=== PATIENT | female | born 1980 | race African-American/Black ===

== ENCOUNTER 2018-07-21 22:47 | Emergency (ER) | payer SELFPAY ==
[2018-07-21] MEDS ORDERED: KETOROLAC TROMETHAMINE 30 MG/1ML VIAL IVP ONE (23:03)
--- NOTE | 2018-07-21 23:22 | ED Physician Documentation ---
Abdominal Pain - HPI Stated Complaint: low abd pain Chief Complaint: Abdominal Pain Additonal Information: Patient presents to ED with sudden onset of suprapubic abdominal pain. Patient states she was sitting at home watching TV when she felt like she had to go to the bathroom. While pushing to have a bowel movement she had sudden onset of lower abdominal pain, sharp stabbing 10/10. Patient states her stool was loose but did not have blood. She came to the ED. She states it feels like her ectopic only lower. She denies fever, chills, night sweats, nausea/vomiting. Onset: hours Duration: constant Timing: still present Context: denies: out of country travel, bad food, recent trauma Severity: severe Quality: pain, sharp, stabbing Associated Symptoms: diarrhea. denies: fever, chills, nausea, vomiting, bloody stools - ROS CONST: no problems GI/: denies: black stools CVS/RESP: denies: shortness of breath EYES/ENT: denies: problems with vision MS/SKIN/LYMPH: denies: rash NEURO/PSYCH: denies: headache, light-headedness - SOCIAL HX Smoking History: cigarettes, greater than 1 pack/day Alcohol Use: none Drug Use: none - FAMILY HX Family History: none - PAST HX Past History: none Ischemic Bowel Risk Factors: none Other History: ectopic Home Medications: Ambulatory Orders Medication Instructions Recorded Hydrocodone/Acetaminophen [[place] 1 each PO TID #15 tablet 07/22/18 5-325 Tablet] Allergies/Adverse Reactions: Allergies Allergy/AdvReac Type Severity Reaction Status Date / Time No Known Allergies Allergy Verified 07/21/18 23:05 - VITAL SIGNS Vital Signs: Vital Signs Temp Pulse Resp BP Pulse Ox 98.2 F 89 18 115/63 99 07/21/18 22:47 07/22/18 01:41 07/22/18 01:41 07/22/18 01:41 07/22/18 01:41 - REVIEWED ASSESSMENTS Nursing Assessment Reviewed: Yes Vitals Reviewed: Yes Progress - Progress Progress: 6 Patient refusing to given urine sample. Refusing in/out cath. 2358 Serum HCG negative. Going to CT scan ED Results Lab/Radiology - Lab Results Lab Results: Lab Results 07/21/18 07/21/18 07/21/18 23:20 23:20 23:20 WBC 10.30 K/ul K/ul (4.00-12.00) RBC 4.40 M/ul M/ul (3.90-5.20) Hgb 12.7 g/dL g/dL (12.0-16.0) Hct 38.0 % % (34.5-46.5) MCV 86.0 fl fl (80.0-100.0) MCH 28.7 pg pg (28.0-34.0) MCHC 33.3 g/dL g/dL (30.0-36.0) RDW 12.6 % % (11.3-14.3) Plt Count 284 K/mm3 K/mm3 (130-400) Neut % (Auto) 64.0 % % (39.0-79.0) Lymph % (Auto) 26.7 % % (16.0-50.0) [place] % (Auto) 5.2 % % (0.0-11.0) Eos % (Auto) 3.7 % % (0.0-6.8) Baso % (Auto) 0.4 (0.0-1.5) Neut # (Auto) 6.6 # k/uL # k/uL (1.4-7.7) Lymph # (Auto) 2.8 # k/uL # k/uL (0.6-4.0) [place] # (Auto) 0.5 # k/uL # k/uL (0.0-0.9) Eos # (Auto) 0.4 # k/uL # k/uL (0.0-0.6) Baso # (Auto) 0.0 # k/uL # k/uL (0.0-0.5) Sodium 137 mmol/L mmol/L (136-145) Potassium 3.5 mmol/L mmol/L (3.5-5.1) Chloride 107 mmol/L mmol/L (98-107) Carbon Dioxide 24 mmol/L mmol/L (22-30) BUN 12 mg/dL mg/dL (7-17) Creatinine 0.80 mg/dL mg/dL (0.52-1.04) Estimated Creat Clear 143 Est GFR ( Amer) > 60 (60 - ) Est GFR (Non-Af Amer) > 60 (60 - ) Glucose 99 mg/dL mg/dL (74-106) Calcium 8.4 mg/dL mg/dL (8.4-10.2) Total Bilirubin 0.2 mg/dL mg/dL (0.2-1.3) AST 43 U/L U/L (15-46) ALT 37 U/L U/L (13-69) Alkaline Phosphatase 65 U/L U/L (38-126) Total Protein 6.4 g/dL g/dL (6.3-8.2) Albumin 4.2 g/dL g/dL (3.5-5.0) Serum HCG, Qual Negative (NEGATIVE) WBC 10.3, Hgb 12.7, Hct 38.0 Plat 284 Na 137, K3.5, Cl 107, CO2 24, Glucose 99, BUN 12, Cr 0.8, ALT 37, AST 43, bili yeung 0.2 - Radiology Radiology Impressions: CT of the abdomen and pelvis with contrast Clinical history: Suprapubic pain. Contrast administered: 95 mL of Omnipaque. Technique: CT abdomen and pelvis is performed with intravenous infusion of contrast. Sagittal and coronal reconstructions were performed by the technologist. Findings: Visualized lung bases are clear. The liver and spleen demonstrate normal attenuation without focal defect. The gallbladder is contracted, but otherwise unremarkable. There is no pancreatic or adrenal abnormality. The kidneys demonstrate symmetric enhancement. There is no retroperitoneal mass or significant adenopathy. The appendix is visualized and is within normal limits. Gas and stool are present throughout the colon. There is a complex cystic structure right ovary with a fat fluid level consistent with mature cystic teratoma. There is a probable 5 cm serosal fibroid arising from the uterus. There is no significant free fluid in the pelvis or abdomen. Bladder is unremarkable. Impression: 1. 7 cm mixed density right adnexal mass consistent with mature cystic teratoma. 2. Probable serosal fibroid. 3. Negative appendix. 4. Contracted gallbladder. Electronically signed on Jul 22, 2018 12:46:11 AM RFID STRATEGIST by: Mik John - Orders Orders: ED Orders Category Date Time Status Place IV Lock 1T Care 07/21/18 22:[address] ABD & PELVIS W/ CON Stat Exams 07/21/18 Completed BETA HCG [SERUM HCG] Stat Lab 07/21/18 23:20 Completed CBC/PLATELET/DIFF Routine Lab 07/21/18 23:20 Completed CMP Routine Lab 07/21/18 23:20 Completed HYDROcodone /APAP 5/325 [[place] 5/325] Med 07/22/18 00:59 Discontinued 1 each PO NOW ONE Ketorolac Tromethamine [Toradol] Med 07/21/18 23:03 Discontinued 30 mg IVP NOW ONE fentaNYL CITRATE/PF [Duragesic] Med 07/21/18 23:42 Discontinued 25 mcg IVP NOW ONE fentaNYL CITRATE/PF [Duragesic] Med 07/22/18 00:41 Discontinued 25 mcg IVP NOW ONE Abdominal Pain Physical Exam - Physical Exam General Appearance: no acute distress, mild distress EENT: FATOU NECK: normal inspection, supple RESPIRATORY: no resp distress, chest non-tender, breath sounds normal CVS: reg rate & rhythm, heart sounds normal, no murmur ABDOMEN: soft, tenderness (suprapubic tenderness) BACK: No: no CVA tenderness SKIN: warm/dry, normal color EXTREMITIES: non-tender, no edema NEURO: oriented X3, motor nml Vital Signs: Vital Signs Temp Pulse Resp BP Pulse Ox 98.2 F 89 18 115/63 99 07/21/18 22:47 07/22/18 01:41 07/22/18 01:41 07/22/18 01:41 07/22/18 01:41 Discharge Clincal Impression: Cystic teratoma of right ovary Uterine fibroid Qualifiers: Uterine leiomyoma location: unspecified location Qualified Code(s): D25.9 - Leiomyoma of uterus, unspecified Prescriptions: Hydrocodone/Acetaminophen [[place] 5-325 Tablet] 1 each PO TID #15 tablet Referrals: Primary Doctor,No [Primary Care Provider] - 2 Days Additional Instructions: 1. Do to lack of urinalysis urinary tract infection cannot be ruled out 2. Do to lack of Ultrasound and Quantitative HCG ectopic cannot be ruled out. 3. Follow up with council member as soon as possible 4. If symptoms persist go to [place], [place] for evaluation with Ultrasound to rule out possible ectopic . Condition: Stable Decision to Admit: NO Date of Decison to Admit: 07/22/18 Decision Time: 00:59
[2018-07-21] MEDS ORDERED: fentaNYL CITRATE/PF 100 MCG/2 ML INJ. IVP ONE (23:42)
[2018-07-22] MEDS ORDERED: fentaNYL CITRATE/PF 100 MCG/2 ML INJ. IVP ONE (00:41)
[2018-07-22] MEDS ORDERED: HYDROcodone /APAP 5/325 1 EACH TABLET PO ONE (00:59)
--- NOTE | 2018-07-22 01:05 | Diagnostic Imaging Report ---
SANDRA LÓPEZEY [facility] [address] [facility] [address] [place] [address]. [id number] Report Submission Date: Jul 22, 2018 12:46:11 AM [employer]ER Patient Study Name: ROSEANN SCHMIDT Date: Jul 22, 2018 12:20:00 AM [employer] Modality Type: CT\SR Gender: F Description: ABDOMEN/PELVIS W/ CONT : 76 Institution: [facility] Physician: SANDRA SOTELO CT of the abdomen and pelvis with contrast Clinical history: Suprapubic pain. Contrast administered: 95 mL of Omnipaque. Technique: CT abdomen and pelvis is performed with intravenous infusion of contrast. Sagittal and coronal reconstructions were performed by the technologist. Findings: Visualized lung bases are clear. The liver and spleen demonstrate normal attenuation without focal defect. The gallbladder is contracted, but otherwise unremarkable. There is no pancreatic or adrenal abnormality. The kidneys demonstrate symmetric enhancement. There is no retroperitoneal mass or significant adenopathy. The appendix is visualized and is within normal limits. Gas and stool are present throughout the colon. There is a complex cystic structure right ovary with a fat fluid level consistent with mature cystic teratoma. There is a probable 5 cm serosal fibroid arising from the uterus. There is no significant free fluid in the pelvis or abdomen. Bladder is unremarkable. Impression: 1. 7 cm mixed density right adnexal mass consistent with mature cystic teratoma. 2. Probable serosal fibroid. 3. Negative appendix. 4. Contracted gallbladder. Electronically signed on Jul 22, 2018 12:46:11 AM [employer]ORER by: Mik SOMMER
[2018-07-22 01:48] VITALS: BP 115/63
[2018-07-23 07:21] LABS: BASOPHILS % 0.4 (0.0-1.5); EOSINOPHILS % 3.7 % (0.0-6.8); MEAN CORPUSCULAR HEMOGLOBIN 28.7 pg (28.0-34.0); MONOCYTES % 5.2 % (0.0-11.0); NEUTROPHILS # 6.6 # k/uL (1.4-7.7); eGFR (Non-African) > 60
== END 2018-07-21 22:55 | disposition home or self-care (01) ==
LOC: ED 22:47
DX: D27.0 Benign neoplasm of right ovary (principal); D25.9 Leiomyoma of uterus, unspecified
CPT/HCPCS: 36415; 74177; 80053; 84703; 85025; 96374; 96375; 99283; 99284; J1885; J3010; Q9967; S1016